=== PATIENT | male | born 1995 | race Caucasian/White ===

== ENCOUNTER → 2018-07-26 | Outpatient (REF) | payer OTHER ==
[2018-07-26 22:06] LABS: CHLAMYDIA DNA AMPLIFICATION NEGATIVE (NEGATIVE); GC DNA AMPLIFICATION NEGATIVE (NEGATIVE)
== END ==
LOC: M SFHCLERA 18:45
PROVIDERS: ATTEND Physician Assistant
DX: R30.0 Dysuria (principal); A60.01 Herpesviral infection of penis
CPT/HCPCS: 81002; 87086; 87252; 87491; 87591; G0463

== ENCOUNTER 2018-09-16 08:32 | Emergency (ER) | payer OTHER ==
[~2018-09-16] VITALS: Ht 193 cm; Wt 85.5 kg
[2018-09-16 08:32] VITALS: BP 121/63
--- NOTE | 2018-09-16 09:20 | REP ---
Clinical: Trauma . Comparison: None . Findings: The ventricles, sulci, and cisterns are normal in position and appearance. Cunningham-white differentiation is maintained. No acute intracranial hemorrhage, mass/mass effect, pathology or trauma/injury. No evidence for acute infarction. No extra-axial fluid collection. Calvarium is intact. Paranasal sinuses and mastoid air cells are clear. Impression: Normal noncontrast head CT. No evidence for acute intracranial pathology or trauma/injury. Electronically Signed by Jensen Hitchcock MD 09/16/2018 09:11 A
--- NOTE | 2018-09-16 09:28 | REP ---
Clinical: Trauma . Comparison: None . Technique: PA and lateral. Findings: The mediastinum and cardiac silhouette are normal. The lung garcia are clear and without acute consolidation, effusion, or pneumothorax. The skeletal structures are intact and normal. Impression: 1. No acute cardiopulmonary process. Electronically Signed by Jensen Hitchcock MD 09/16/2018 09:19 A
== END 2018-09-16 09:32 | disposition home or self-care (01) ==
LOC: M ED 08:32
DX: S00.83XA Contusion of other part of head, initial encounter (principal); S20.229A Contusion of unspecified back wall of thorax, initial encounter; Y04.0XXA Assault by unarmed brawl or fight, initial encounter; Y92.143 Cell of prison as the place of occurrence of the external cause; Y93.89 Activity, other specified; Y99.8 Other external cause status

== ENCOUNTER 2019-12-19 10:26 | Emergency (ER) | payer OTHER ==
[~2019-12-19] VITALS: Ht 193 cm; Wt 102.4 kg
[2019-12-19] MEDS ORDERED: XARE15TA (10:34)
[2019-12-19 11:09] LABS: BASO % 0.3 % (0.0-1.0); EOS # 0.1 10^3/uL (0.0-0.5); EOS % 1.7 % (0.0-3.0); HEMATOCRIT 48.3 % (42.0-52.0); HEMOGLOBIN 16.3 g/dl (13.5-17.5); LYMPH # 1.9 10^3/uL (1.5-5.0); LYMPH % 26.6 % (24.0-44.0); MEAN CORPUSCULAR HEMOGLOBIN 30.2 pg (27.0-33.0); MEAN CORPUSCULAR HGB CONC 33.7 g/dl (32.0-36.5); MEAN CORPUSCULAR VOLUME 89.4 fl (80.0-96.0); MONO # 0.7 10^3/uL (0.0-0.8); MONO % 10.3 % (0.0-5.0); NEUTROPHILS # 4.3 10^3/uL (1.5-8.5); NEUTROPHILS % 60.7 % (36.0-66.0); PLATELET COUNT, AUTOMATED 211 10^3/uL (150-450); WHITE BLOOD COUNT 7.1 10^3/uL (4.0-10.0)
[2019-12-19 11:19] LABS: INR 1.03; PROTHROMBIN TIME 13.2 SECONDS (11.8-14.0)
[2019-12-19 11:20] LABS: PARTIAL THROMBOPLASTIN TIME 26.5 SECONDS (25.0-38.4)
[2019-12-19 11:28] LABS: ALBUMIN 3.9 GM/DL (3.2-5.2); ALT/SGPT 57 U/L (12-78); BILIRUBIN,DIRECT 0.1 MG/DL (0.0-0.2); BILIRUBIN,TOTAL 0.4 MG/DL (0.2-1.0); BLOOD UREA NITROGEN 12 MG/DL (7-18); C REACTIVE PROTEIN QUANTITATIV 0.35 MG/DL (0.00-0.30); CALCIUM LEVEL 9.6 MG/DL (8.5-10.1); CARBON DIOXIDE LEVEL 27 MEQ/L (21-32); CHLORIDE LEVEL 107 MEQ/L (98-107); CREATININE FOR GFR 1.02 MG/DL (0.70-1.30); GLOMERULAR FILTRATION RATE > 60.0 (>60); GLUCOSE, FASTING 104 MG/DL (70-100); POTASSIUM SERUM 4.2 MEQ/L (3.5-5.1); SODIUM LEVEL 139 MEQ/L (136-145); TOTAL PROTEIN 7.3 GM/DL (6.4-8.2)
[2019-12-19 11:33] LABS: ERYTHROCYTE SEDIMENTATION RATE 1 mm/hr (0-15)
[2019-12-19] MEDS ORDERED: ISOVUE-370 76% 100ML VIAL As Ordered ONE (12:02)
--- NOTE | 2019-12-19 14:43 | REP ---
CT ANGIOGRAM CHEST: TECHNIQUE: Axial contrast-enhanced images from the thoracic inlet to the upper abdomen using 100 mL Isovue-370 intravenous contrast material with multiplanar reformations. There is no CT evidence of pulmonary embolism. There is no evidence of thoracic aortic aneurysm or dissection. The heart is mildly enlarged. There is no pleural or pericardial effusion. There is no evidence of mediastinal, hilar or chest wall lymphadenopathy. No infiltrate is seen in either lung. IMPRESSION: No evidence of pulmonary embolism. Mild cardiomegaly. Electronically Signed by Alexx Cunningham MD 12/22/2019 10:21 P
[2019-12-19 14:51] VITALS: BP 121/69
== END 2019-12-19 14:52 | disposition home or self-care (01) ==
LOC: M ED 10:26
DX: R06.02 Shortness of breath (principal); Z86.718 Personal history of other venous thrombosis and embolism; Z79.02 Long term (current) use of antithrombotics/antiplatelets
CPT/HCPCS: 71275; 80048; 80076; 85025; 85610; 85652; 85730; 86140; 87486; 87581; 87633; 87798; 99284; Q9967

== ENCOUNTER 2020-01-13 19:30 | Emergency (ER) | payer OTHER ==
[~2020-01-13 19:30] MED LIST: XARE15TA
== END 2020-01-13 20:10 | disposition home or self-care (01) ==
LOC: M ED 19:30
DX: Z76.0 Encounter for issue of repeat prescription (principal); Z86.718 Personal history of other venous thrombosis and embolism

== ENCOUNTER 2020-03-20 15:32 | Emergency (ER) | payer OTHER ==
[~2020-03-20] VITALS: Ht 193 cm; Wt 98.8 kg
[2020-03-20 15:32] VITALS: BP 145/71
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
[2020-03-20] MEDS ORDERED: CYCL-707 PO (17:32)
[2020-03-20] MEDS ORDERED: IBUP80TA PO (17:32)
== END 2020-03-20 17:53 | disposition home or self-care (01) ==
LOC: M ED 15:32
DX: S06.0X0A Concussion without loss of consciousness, initial encounter (principal); S83.91XA Sprain of unspecified site of right knee, initial encounter; S80.211A Abrasion, right knee, initial encounter; S00.91XA Abrasion of unspecified part of head, initial encounter; M54.9 Dorsalgia, unspecified; Y04.8XXA Assault by other bodily force, initial encounter; Y92.133 Barracks on military base as the place of occurrence of the external cause; Y93.9 Activity, unspecified; Y99.9 Unspecified external cause status; Z86.718 Personal history of other venous thrombosis and embolism; Z87.81 Personal history of (healed) traumatic fracture